=== PATIENT | female | born 1950 | race Caucasian/White ===

== ENCOUNTER → 2021-07-15 | Outpatient (CLI) | payer OTHER ==
--- NOTE | 2021-07-15 14:02 | KCIC ---
Bilateral digital screening mammograms with 3-D tomosynthesis: Reason for examination: Routine screening. No previous examinations are available for comparison. New baseline. Bilateral mammograms in CC and oblique projections were obtained with 2-D imaging and 3-D tomosynthes is imaging on a Siemens Inspiration unit and reviewed on the workstation. Interpretation was made wit h the benefit of CAD. The skin and nipples show no abnormalities. No abnormal axillary lymph nodes are seen. The breast par enchyma shows scattered fatty and fibroglandular density. (Breast density: Category B.) There are sma ll nodular densities in the right breast at the 9:30 position approximately 9 cm from the nipple and measuring 4 mm in size and in the left breast at the 2:00 position 4 cm from the nipple measuring 5 m m in size and in the left breast at the 6:30 position 7 cm from the nipple measuring 4.5 mm. Recommen d further evaluation with bilateral breast ultrasound. There are no other dominant masses, suspicious calcifications or architectural distortion. Benign calcifications are present. Impression: Small nodular densities bilaterally at approximately the 9:00 B position of the right breast and at t he 2:00 A and 6:30 B positions of the left breast. Recommend further evaluation with ultrasound. BI-RAD Category 0: Incomplete. Needs additional imaging evaluation. "Our facility is accredited by the [employer] Mammography Program." This patient's information has been entered into a reminder system for the patient to be notified wit h the results of her examination and a target date for the next mammogram. Electronically signed by: Evy Falcon MD (07/15/2021 1:59 PM) [email or web address]
--- NOTE | 2021-07-16 08:34 | KCIC ---
INDICATION: Screening for osteopenia/osteoporosis. Reason: POST MENOPAUSAL / Spl. Instructions: / H istory: COMPARISON: None. TECHNIQUE: Bone densitometry was performed through the lumbar spine and proximal femur. IMPRESSION: Lumbar Spine: BMD: 0.93 T-Score: -1.0 Range: Osteopenic Proximal Femur: BMD: 0.73 T-Score: -1.7 Range: Osteopenic World Health Organization Criteria for Bone Density: T-Score: > -1.0: Normal Range < -1.0 to -2.5: Osteopenic Range < -2.5: Osteoporotic Range Electronically signed by: Nigel Cardozo MD (07/16/2021 8:31 AM) [id number]
== END ==
LOC: KCIC MAMMO 12:52
PROVIDERS: ATTEND Family Medicine
DX: Z12.31 Encounter for screening mammogram for malignant neoplasm of breast (principal); M85.89 Other specified disorders of bone density and structure, multiple sites; Z78.0 Asymptomatic menopausal state
CPT/HCPCS: 77063; 77067; 77080

== ENCOUNTER → 2021-07-25 | Outpatient (CLI) | payer MEDICARE, OTHER ==
--- NOTE | 2021-07-25 14:49 | KCIC ---
Bilateral breast ultrasound: Reason for examination: Nodular densities on screening mammogram. Comparison is made to mammographic exam dated 07/15/2021. Ultrasound examination was performed of the breasts and axilla bilaterally. In the right breast at 9:00 position 3 cm from the nipple, there is a small 3.2 mm fibrocystic lesion . There is some ductal ectasia in the retroareolar 9:00 position. No other right breast nodules are s een. No abnormal appearing lymph nodes are seen in the right axilla. In the left breast at the 2:00 position 5 cm from the nipple, there is a small 5.6 x 3.6 mm hypoechoi c nodule which probably represents fibrocystic nodule. There is ductal ectasia in the 6:30 and 7:00 p ositions of the left breast. No other cystic or solid nodules are seen no abnormal appearing lymph no minna are seen in the left axilla. IMPRESSION: Small fibrocystic type nodules bilaterally. No suspicious lesion seen. Recommend 6 month follow-up [facility] mammograms and ultrasound. BI-RADS Category 3: Probably Benign. "Our facility is accredited by the [employer] Mammography [employer]." This patient's information has been entered into a reminder system for the patient to be notified wit h the results of her examination and a target date for the next mammogram. Electronically signed by: Evy Falcon MD (07/25/2021 2:46 PM) [email or web address]
== END ==
LOC: KCIC US 12:45
PROVIDERS: ATTEND Family Medicine
DX: N63.21 Unspecified lump in the left breast, upper outer quadrant (principal); N60.42 Mammary duct ectasia of left breast; N64.89 Other specified disorders of breast
CPT/HCPCS: 76641